=== PATIENT | female | born 1985 | race African-American/Black ===

== ENCOUNTER 2023-01-13 01:28 | Emergency (ER) | payer MEDICAID ==
[~2023-01-13] VITALS: Ht 167.6 cm; Wt 73.0 kg
[~2023-01-13 01:28] MED LIST: ALBUTEROL
[2023-01-13 01:30] VITALS: BP 121/96; PULSE 80; RESP 18; TEMP 98.6; O2SAT 100
== END 2023-01-13 01:36 | disposition left against medical advice (07) ==
LOC: ER 01:28
DX: R51.9 Headache, unspecified (principal); Z53.21 Procedure and treatment not carried out due to patient leaving prior to being seen by health care provider
CPT/HCPCS: 99281